=== PATIENT | female | born 1975 | race African-American/Black ===

== ENCOUNTER 2017-07-26 16:09 | Emergency (ER) | payer MEDICAID, OTHER, SELFPAY ==
[~2017-07-26] VITALS: Ht 175.3 cm; Wt 106.9 kg
[2017-07-26 16:48] LABS: BASOPHILS # (AUTO) 0.02 x10^3/uL (0-0.1); BASOPHILS % (AUTO) 0 % (0-1); EOSINOPHILS # (AUTO) 0.03 x10^3/uL (0-0.4); EOSINOPHILS % (AUTO) 1 % (1-7); LYMPHOCYTES # (AUTO) 1.39 x10^3/uL (1-3.4); LYMPHOCYTES % (AUTO) 28 % (22-44); MD NO; MEAN CORPUSCULAR HEMOGLOBIN 27.1 pg (27.0-34.8); MEAN CORPUSCULAR HGB CONC 32.9 g/dL (32.4-35.8); MEAN CORPUSCULAR VOLUME 82.1 fL (80-100); MEAN PLATELET VOLUME 8.5 fL (7.4-10.4); MONOCYTES # (AUTO) 0.27 x10^3/uL (0.2-0.8); MONOCYTES % (AUTO) 6 % (2-9); NEUTROPHILS # (AUTO) 3.23 x10^3/uL (1.8-6.8); NEUTROPHILS % (AUTO) 65 % (42-75); PLATELET COUNT 294 x10^3/uL (130-400); RED BLOOD COUNT 4.74 x10^6/uL (3.82-5.3); RED CELL DISTRIBUTION WIDTH 13.6 % (9.6-15.2)
[2017-07-26 17:01] LABS: ALBUMIN 3.9 g/dL (3.4-5.0); ANION GAP 3 mmol/L (5-15); CALCIUM 8.7 mg/dL (8.5-10.1); CHLORIDE 109 mmol/L (98-107); CREATININE 0.85 mg/dL (0.55-1.02)
[2017-07-26] MEDS ORDERED: ATEN25TA PO (17:02)
[2017-07-26] MEDS ORDERED: LISI-167 PO (17:02)
[2017-07-26] MEDS ORDERED: HYDR25TA6 PO (17:02)
[2017-07-26 17:05] LABS: TROPONIN I < 0.015 ng/mL (0.000-0.045)
[2017-07-26] MEDS ORDERED: ATENOLOL 25 MG TABLET PO STA (17:13)
[2017-07-26] MEDS ORDERED: LISINOPRIL 10 MG TABLET ONE (17:14)
[2017-07-26] MEDS ORDERED: PROMETHAZINE 25 MG/ML, 1ML ONE (17:16)
[2017-07-26] MEDS ORDERED: PROMETHAZINE 25 MG/ML, 1ML IM ONE (17:30)
[2017-07-26] MEDS ORDERED: HYDROCHLOROTHIAZIDE 25 MG TABLET PO ONE (17:30)
[2017-07-26] MEDS ORDERED: LISINOPRIL 10 MG TABLET PO ONE (17:30)
[2017-07-26 17:39] LABS: MICROSCOPIC AUTO
[2017-07-26 17:41] LABS: CULTURE INDICATED? YES
[2017-07-26 17:55] LABS: HCG UR SG 1.016 (1.003-1.030)
[2017-07-26 18:53] VITALS: BP 175/94
== END 2017-07-26 19:10 | disposition home or self-care (01) ==
LOC: ED 18:00
DX: G43.009 Migraine without aura, not intractable, without status migrainosus (principal); I10 Essential (primary) hypertension; Z76.0 Encounter for issue of repeat prescription; R82.99 Other abnormal findings in urine
CPT/HCPCS: 36415; 71045; 80048; 81001; 81025; 82040; 84484; 85025; 87086; 93005; 96372; 99285; J2550